=== PATIENT | female | born 1935 | race Caucasian/White ===

== ENCOUNTER 2018-11-02 13:21 | Inpatient (IN) | payer MEDICARE, OTHER ==
[~2018-11-02] VITALS: Ht 157.5 cm; Wt 61.3 kg
[2018-11-02] MEDS ORDERED: SODIUM CHLORIDE 0.9% 500 ML IV ONE (13:59)
[2018-11-02 14:37] LABS: Basophils # (auto) 0 uL; Basophils % (auto) 0.3 % (0.0-2.0); Eosinophils # (auto) 0 uL; Eosinophils % (auto) 0.4 % (0.0-7.0); Hemoglobin 12.2 g/dL (12.2-16.2); Lymphocytes # (auto) 0.9 uL; Mean Corpuscular Hgb Conc. 34.9 g/dL (32.0-36.0); Mean Corpuscular Volume 91.6 fL (80.0-100.0); Monocytes # (auto) 0.6 uL; Monocytes % (auto) 10.1 % (0.0-12.0); Neutrophils # (auto) 4.6 uL; Neutrophils % (auto) 75.2 % (37.0-80.0); Platelet Count (auto) 168 10^3/uL (140-450); Red Blood Cells 3.82 10^6/uL (4.0-5.20); White Blood Cell 6.1 10^3/uL (4.4-10.8)
[2018-11-02 14:52] LABS: Alanine Aminotransferase 26 U/L (13-56); Albumin 2.8 g/dL (3.4-5.0); Anion Gap 5 (5-15); Aspartate Aminotransferase 22 U/L (15-37); BUN/Creatinine Ratio 18.7; Blood Urea Nitrogen 20 mg/dL (7-18); Calcium 8.3 mg/dL (8.5-10.1); Carbon Dioxide 28 mmol/L (21-32); Chloride 110 mmol/L (98-107); GFR African American 63 mL/min; GFR Non-African American 52 mL/min; Glucose 127 mg/dL (74-106); Partial Thromboplastin Time 23.8 sec (23.64-32.05); Potassium 3.5 mmol/L (3.5-5.1); Sodium 143 mmol/L (136-145)
[2018-11-02 14:53] LABS: Bilirubin, Total 0.3 mg/dL (0.2-1.0); Total Protein 5.7 g/dL (6.4-8.2)
[2018-11-02 14:57] LABS: Alkaline Phosphatase 96 U/L (45-117)
[2018-11-02] MEDS ORDERED: SOD CHL 0.9%/ KCL 20MEQ 1,000 ML IV ONE (17:15)
[2018-11-02] MEDS ORDERED: ONDANSETRON HCL 4 MG/2 ML VIAL IV PRN (17:15)
[2018-11-02] MEDS ORDERED: NITROGLYCERIN 0.4 MG SL TAB SL PRN (17:15)
[2018-11-02] MEDS ORDERED: MORPHINE SULF INJ 2 MG/ML SYRINGE 1ML IV PRN ×2 (17:15)
[2018-11-02] MEDS: ACETAMINOPHEN 500 MG TAB PO PRN (18:14)
[2018-11-02 19:53] VITALS: BP 131/69
--- NOTE | 2018-11-02 19:53 | NUR ---
Telemetry admit from ER ULISSES STEPHENS admitted to Telemetry unit. Patient oriented to PETER HAYDEN RN primary RN, unit, room, bed, and unit policies regarding patient care and visiting hours. Patient now on continuous telemetry monitoring, tele box # [id number] and telemetry reading on arrival to unit is sinus rhythm at 63 beats per minute. Patient placed weighed by bedscale and encouraged to call if they need something. Bed in lowest locked position, side rails up x2, call light within reach, bed alarm on. All questions and concerns addressed, patient verbalized understanding.
--- NOTE | 2018-11-02 21:32 | NUR ---
Spoke with caregiver Selena after password provided. Updated on plan of care and all questions and concerns addressed. Will continue to monitor patient.
[2018-11-02 22:00] VITALS: BP 131/69
[2018-11-02] MEDS ORDERED: ATORVASTATIN 20 MG TAB PO SCH (22:00)
--- NOTE | 2018-11-02 22:00 | NUR ---
Hospitalist Paged No diet order note. will call order clerk hospitalist paged, awaiting call back at this time.
--- NOTE | 2018-11-02 22:20 | NUR ---
Hospitalist Returned Page call center analyst hospitalist Rogelio Serrano SOCIAL MEDIA DIRECTOR returned page at this time. New order received for Regular Pureed diet. Order read back and verified, will implement and continue to monitor.
--- NOTE | 2018-11-02 22:25 | NUR ---
Patient brought ice water and offered snack. Patient declined at this time. Will continue to monitor.
[2018-11-03] MEDS ORDERED: MULTTAB61 PO (02:18)
[2018-11-03] MEDS ORDERED: ATO40T PO (02:18)
[2018-11-03] MEDS ORDERED: SERT50TA PO (02:18)
[2018-11-03 05:00] VITALS: BP 126/77
[2018-11-03 06:03] LABS: Basophils # (auto) 0 uL; Basophils % (auto) 0.5 % (0.0-2.0); Eosinophils # (auto) 0.1 uL; Eosinophils % (auto) 2.9 % (0.0-7.0); Hematocrit 33.4 % (36.0-46.0); Hemoglobin 11.4 g/dL (12.2-16.2); Lymphocytes # (auto) 1.2 uL; Lymphocytes % (auto) 28.6 % (10.0-50.0); Mean Corpuscular Hemoglobin 30.7 pg (28.0-32.0); Mean Corpuscular Hgb Conc. 33.9 g/dL (32.0-36.0); Mean Corpuscular Volume 90.4 fL (80.0-100.0); Monocytes # (auto) 0.6 uL; Monocytes % (auto) 13.8 % (0.0-12.0); Neutrophils # (auto) 2.3 uL; Neutrophils % (auto) 54.2 % (37.0-80.0); Nucleated Red Blood Cells % 0.1 %; Platelet Count (auto) 149 10^3/uL (140-450); Red Cell Distribution Width 14.6 % (11.8-14.3); White Blood Cell 4.3 10^3/uL (4.4-10.8)
[2018-11-03 06:25] LABS: Albumin 2.6 g/dL (3.4-5.0); BUN/Creatinine Ratio 21.3; Calcium 7.9 mg/dL (8.5-10.1); Potassium 3.8 mmol/L (3.5-5.1)
[2018-11-03 06:30] LABS: Bilirubin, Total 0.4 mg/dL (0.2-1.0); Total Protein 5.5 g/dL (6.4-8.2)
--- NOTE | 2018-11-03 07:00 | NUR ---
Bathroom and Closing Note Patient assisted to bathroom and back to bed without incident. Patient now lying in bed, awake and alert. No s/s of distress. Care endorsed to dayshift RN.
--- NOTE | 2018-11-03 08:05 | NUR ---
Opening Shift Note Assumed care of patient, awake and alert. No S/S of distress/SOB or pain. Instructed on POC and to call for assist PRN, will continue to monitor for changes Q1hr and PRN.
[2018-11-03 09:00] VITALS: BP 159/99
--- NOTE | 2018-11-03 09:00 | NUR ---
BATHROOM Assisted patient to restroom with standby assist. Educated on need for urine sample. Patient was unable to provide as sample was contaminated. Education provided and patient verbalized understanding. Partial linen change and clean gown provided.
[2018-11-03] MEDS ORDERED: FAMOTIDINE 20 MG TAB PO SCH (10:00)
--- NOTE | 2018-11-03 12:29 | NUR ---
TELEPHONE ORDERS Received call from Dr Blanchard, janine MD on patient. T/O's read back and noted.
[2018-11-03 13:22] VITALS: BP 125/74
[2018-11-03 14:06] LABS: Urine WBC None Seen /hpf (0 - 5)
[2018-11-03 14:26] LABS: Urine Bacteria NONE SEEN /hpf (None Seen); Urine Blood Negative /uL (Negative); Urine Specific Gravity 1.012 (1.001-1.035)
[2018-11-03] MEDS ORDERED: SODIUM CHLORIDE 0.9% 1,000 ML IV SCH (16:15)
[2018-11-03] MEDS: ACETAMINOPHEN 500 MG TAB PO PRN (17:01)
--- NOTE | 2018-11-03 19:25 | NUR ---
Opening Shift Note Report received from day shift RN. Assumed care of patient. Patient awake and alert x3. No S/S of distress/SOB noted and denies pain at this time. Bed left in lowest position, locked, with side rails up x2. Bed alarm on for safety. Instructed on POC and to call for assist PRN, will continue to monitor for changes Q1hr and PRN.
[2018-11-03] MEDS: ATORVASTATIN 20 MG TAB PO SCH (21:33)
[2018-11-03] MEDS: FAMOTIDINE 20 MG TAB PO SCH (21:33)
[2018-11-03 22:00] VITALS: BP 127/70
[2018-11-03] MEDS: HYDROcodone-ACET 5/325MG TAB PO PRN (23:16)
[2018-11-04 07:32] LABS: Basophils # (auto) 0 uL; Eosinophils # (auto) 0.2 uL; Eosinophils % (auto) 3.9 % (0.0-7.0); Hematocrit 35.9 % (36.0-46.0); Hemoglobin 12.1 g/dL (12.2-16.2); Lymphocytes # (auto) 1.1 uL; Mean Corpuscular Hemoglobin 30.7 pg (28.0-32.0); Mean Corpuscular Hgb Conc. 33.7 g/dL (32.0-36.0); Mean Corpuscular Volume 91.1 fL (80.0-100.0); Monocytes # (auto) 0.5 uL; Monocytes % (auto) 12.2 % (0.0-12.0); Neutrophils # (auto) 2.4 uL; Neutrophils % (auto) 56.9 % (37.0-80.0); Platelet Count (auto) 156 10^3/uL (140-450); Red Blood Cells 3.95 10^6/uL (4.0-5.20); Red Cell Distribution Width 14.5 % (11.8-14.3); White Blood Cell 4.2 10^3/uL (4.4-10.8)
[2018-11-04 08:02] LABS: Potassium 3.8 mmol/L (3.5-5.1)
[2018-11-04 08:04] LABS: BUN/Creatinine Ratio 17.3
[2018-11-04 09:00] VITALS: BP 139/103
[2018-11-04] MEDS: MULTIPLE VITAMIN TAB PO SCH (10:21)
[2018-11-04] MEDS: FAMOTIDINE 20 MG TAB PO SCH ×2 (10:21→21:54)
[2018-11-04] MEDS: SERTRALINE HCL 50 MG TAB PO SCH (10:21)
[2018-11-04] MEDS: ENOXAPARIN SOD 40 MG/0.4 ML SYRINGE SC SCH (10:22)
--- NOTE | 2018-11-04 11:15 | NUR ---
PHYSICAL THERAPY Patient ambulating with PT.
[2018-11-04 12:56] VITALS: BP 131/99
--- NOTE | 2018-11-04 14:00 | NUR ---
WANDERING Patient wandering hallway, verbalizing she is going home. Educated on need to see Doctor for discharge clearance and safety. Patient verbalized understanding. Reoriented patient and returned to bed. Bed alarm on, in locked lowest position, call light in reach.
--- NOTE | 2018-11-04 16:30 | NUR ---
TELEPHONE ORDERS Received call from Dr Teresa Blanchard, updated on patient. MD asked to have consults re-called and states he will be in to see patient in approximately one hour, plans for discharge this evening. T/O received, read back, and noted.
--- NOTE | 2018-11-04 16:38 | NUR ---
CAREGIVER AT BEDSIDE Updated on patient status and possible discharge home this evening. Caregiver states she might not be able to come back to pick patient up this evening, would like d/c held or transport patient home with [facility]. Will notify MD and/or oncoming shift.
[2018-11-04 16:39] VITALS: BP 140/78
--- NOTE | 2018-11-04 16:40 | NUR ---
NEURO AND CARDIO CONSULT RE CALLED
--- NOTE | 2018-11-04 18:30 | NUR ---
DOCTOR ROUNDING Dr Blanchard rounding on patient, states patient can discharge early in morning once rn home care can grape picker, clearance of neuro and cardio.
--- NOTE | 2018-11-04 19:20 | NUR ---
Opening Shift Note Report received from day shift RN. Assumed care of patient. Patient awake laying in bed and alert x3. No S/S of distress/SOB noted and denies pain at this time. Bed left in lowest position, locked, with side rails up x2. Bed alarm on for safety. Instructed on POC and to call for assist PRN, will continue to monitor for changes Q1hr and PRN.
[2018-11-04] MEDS: ATORVASTATIN 20 MG TAB PO SCH (21:54)
[2018-11-04] MEDS: HYDROcodone-ACET 5/325MG TAB PO PRN (21:54)
[2018-11-04 23:43] VITALS: BP 149/80
[2018-11-05 05:31] VITALS: BP 129/70
[2018-11-05 06:47] LABS: Basophils # (auto) 0 uL; Basophils % (auto) 0.9 % (0.0-2.0); Eosinophils # (auto) 0.2 uL; Eosinophils % (auto) 3.8 % (0.0-7.0); Hematocrit 36.1 % (36.0-46.0); Hemoglobin 12.5 g/dL (12.2-16.2); Lymphocytes # (auto) 1.2 uL; Lymphocytes % (auto) 28.4 % (10.0-50.0); Mean Corpuscular Hemoglobin 30.9 pg (28.0-32.0); Mean Corpuscular Hgb Conc. 34.5 g/dL (32.0-36.0); Mean Corpuscular Volume 89.4 fL (80.0-100.0); Monocytes # (auto) 0.7 uL; Monocytes % (auto) 16.6 % (0.0-12.0); Neutrophils % (auto) 50.3 % (37.0-80.0); Platelet Count (auto) 160 10^3/uL (140-450); Red Blood Cells 4.04 10^6/uL (4.0-5.20); Red Cell Distribution Width 14.7 % (11.8-14.3); White Blood Cell 4.1 10^3/uL (4.4-10.8)
[2018-11-05 07:01] LABS: Potassium 3.5 mmol/L (3.5-5.1)
[2018-11-05 07:06] LABS: BUN/Creatinine Ratio 15.6; Calcium 8.3 mg/dL (8.5-10.1)
--- NOTE | 2018-11-05 07:30 | NUR ---
Opening Shift Note Assumed care of patient, resting with eyes closed, respirations even and unlabored. No S/S of distress/SOB or pain. Will continue to monitor for changes Q1hr and PRN.
[2018-11-05 09:00] VITALS: BP 104/59
--- NOTE | 2018-11-05 09:02 | NUR ---
DR LEXUS MABRY FOR DISCHARGE CLEARANCE
[2018-11-05] MEDS: ENOXAPARIN SOD 40 MG/0.4 ML SYRINGE SC SCH (10:00)
[2018-11-05] MEDS: SERTRALINE HCL 50 MG TAB PO SCH (10:49)
[2018-11-05] MEDS: FAMOTIDINE 20 MG TAB PO SCH (10:50)
[2018-11-05] MEDS: MULTIPLE VITAMIN TAB PO SCH (10:50)
[2018-11-05] MEDS: ACETAMINOPHEN 500 MG TAB PO PRN (10:53)
--- NOTE | 2018-11-05 11:02 | NUR ---
D/C Planning Per consult for home health safety evaluation and physical therapy. Contacted [facility] ph: ( [phone]) Fax:) faxed medical records. Per Dorina from [facility] pt has been accepted and service to start tomorrow 11/06/18. Informed RN Karey. Addendum: 11/05/18 at 1104 by AMELIA YATES Amended: Links added.
[2018-11-05 13:00] VITALS: BP 132/71
--- NOTE | 2018-11-05 14:00 | NUR ---
Caregiver Selena at bedside, discharge instructions given as ordered. Encourage to follow up with PMD, neuro and cardio as instructed. All questions and concerns addressed. Patient verbalized understanding. Medication reconciliation form completed and copy given to patient. Home medications held in Pharmacy returned to patient. IV removed with catheter intact, pressure dressing applied. Telemetry unit returned to ICU. Patient taken to vehicle via wheelchair with all personal belongings, accompanied by staff and family member. No distress noted at time of departure.
--- NOTE | 2018-11-05 15:51 | NUR ---
assessment Patient was discharged home prior to being assessed. Yane AGUIAR has satisfied home health order. Addendum: 11/06/18 at 1552 by Itzel DENIS Amended: Links added.
== END 2018-11-05 14:05 | disposition home health service (06) | DRG 683 ==
LOC: EDBD 13:21 → EDSEX 13:21 → ER 13:35 → TELE 13:36 → TELE-WESTW 19:50
PROVIDERS: ADMIT Nurse Practitioner Acute Care; ATTEND Internal Medicine
DX: N17.9 Acute kidney failure, unspecified (principal); D61.818 Other pancytopenia; E44.0 Moderate protein-calorie malnutrition; R55 Syncope and collapse; I10 Essential (primary) hypertension; E78.5 Hyperlipidemia, unspecified; E86.0 Dehydration; R00.1 Bradycardia, unspecified; F02.80 Dementia in other diseases classified elsewhere, unspecified severity, without behavioral disturbance, psychotic disturbance, mood disturbance, and anxiety; G30.9 Alzheimer's disease, unspecified; I11.9 Hypertensive heart disease without heart failure; M16.10 Unilateral primary osteoarthritis, unspecified hip; Z85.3 Personal history of malignant neoplasm of breast; Z88.6 Allergy status to analgesic agent; M51.37 Other intervertebral disc degeneration, lumbosacral region; M46.90 Unspecified inflammatory spondylopathy, site unspecified; Z68.24 Body mass index [BMI] 24.0-24.9, adult
CPT/HCPCS: 36415; 70450; 72192; 80048; 80053; 80061; 81001; 83735; 84443; 84484; 85025; 85610; 85730; 93005; 93306; 93886; 93971; 94761; 96360; 96361; 97116; 97530; G0378

== ENCOUNTER 2018-11-25 10:19 | Emergency (ER) | payer OTHER ==
[~2018-11-25] VITALS: Ht 157.5 cm; Wt 59.0 kg
[~2018-11-25 10:19] MED LIST: ATO40T PO; MULTTAB61 PO; SERT50TA PO
[2018-11-25 10:24] VITALS: BP 172/75
[2018-11-25] MEDS ORDERED: SODIUM CHLORIDE 0.9% 1,000 ML IV ONE (10:27)
[2018-11-25 11:06] LABS: Urine Bacteria NONE SEEN /hpf (None Seen); Urine Blood Negative /uL (Negative); Urine Specific Gravity 1.007 (1.001-1.035); Urine WBC <1 /hpf (0 - 5)
[2018-11-25 11:06] LABS: Basophils # (auto) 0 uL; Basophils % (auto) 0.7 % (0.0-2.0); Eosinophils # (auto) 0.1 uL; Eosinophils % (auto) 1.1 % (0.0-7.0); Hematocrit 39.7 % (36.0-46.0); Hemoglobin 13.3 g/dL (12.2-16.2); Lymphocytes # (auto) 1.3 uL; Lymphocytes % (auto) 29.5 % (10.0-50.0); Mean Corpuscular Hemoglobin 30.5 pg (28.0-32.0); Mean Corpuscular Hgb Conc. 33.6 g/dL (32.0-36.0); Mean Corpuscular Volume 90.8 fL (80.0-100.0); Monocytes # (auto) 0.6 uL; Monocytes % (auto) 12.1 % (0.0-12.0); Neutrophils # (auto) 2.6 uL; Neutrophils % (auto) 56.6 % (37.0-80.0); Nucleated Red Blood Cells % 0.1 %; Platelet Count (auto) 191 10^3/uL (140-450); Red Blood Cells 4.37 10^6/uL (4.0-5.20); Red Cell Distribution Width 14.5 % (11.8-14.3); White Blood Cell 4.6 10^3/uL (4.4-10.8)
[2018-11-25 11:20] LABS: Albumin 3.4 g/dL (3.4-5.0); Calcium 8.6 mg/dL (8.5-10.1); Potassium 3.7 mmol/L (3.5-5.1)
[2018-11-25 11:23] LABS: BUN/Creatinine Ratio 12.2; Bilirubin, Total 0.6 mg/dL (0.2-1.0); Total Protein 6.8 g/dL (6.4-8.2)
== END 2018-11-25 12:47 | disposition home or self-care (01) ==
LOC: ER 10:19 → EDBD 10:19 → ER 12:47
DX: E86.0 Dehydration (principal); N39.0 Urinary tract infection, site not specified; L71.9 Rosacea, unspecified; E78.5 Hyperlipidemia, unspecified; I10 Essential (primary) hypertension; Z88.8 Allergy status to other drugs, medicaments and biological substances
CPT/HCPCS: 36415; 70450; 72192; 80053; 81001; 85025; 96360; 99284; J7030

== ENCOUNTER 2018-12-04 00:04 | Emergency (ER) | payer OTHER ==
[~2018-12-04] VITALS: Ht 154.9 cm; Wt 59.0 kg
[2018-12-04] MEDS ORDERED: diphenhdrAMINE HCL 25 MG CAP PO ONE (02:00)
[2018-12-04] MEDS ORDERED: DexAMETHasone SOD PHOS 10MG/1ML VIAL INJ IM ONE (02:00)
[2018-12-04] MEDS ORDERED: FAMOTIDINE 20 MG TAB PO ONE (02:00)
[2018-12-04 08:23] VITALS: BP 109/62
== END 2018-12-04 09:19 | disposition home or self-care (01) ==
LOC: EDBD 00:04 → ER 00:06
DX: L50.0 Allergic urticaria (principal); E78.5 Hyperlipidemia, unspecified; I10 Essential (primary) hypertension; Z79.82 Long term (current) use of aspirin; Z79.899 Other long term (current) drug therapy
CPT/HCPCS: 96372; 99283; J1100

== ENCOUNTER 2021-07-16 16:21 | Inpatient (IN) | payer OTHER ==
[~2021-07-16] VITALS: Ht 152.4 cm; Wt 62.1 kg
[~2021-07-16 16:21] MED LIST changes: +MULT-1018 PO; -MULTTAB61 PO
[2021-07-16 18:05] LABS: Hemoglobin 12.9 g/dL (12.2-16.2); Mean Corpuscular Hgb Conc. 34.8 g/dL (32.0-36.0); Mean Corpuscular Volume 89.1 fL (80.0-100.0); Red Blood Cells 4.15 10^6/uL (4.0-5.20); Red Cell Distribution Width 15.5 % (11.8-14.3); White Blood Cell 3.5 10^3/uL (4.4-10.8)
[2021-07-16 18:06] LABS: Basophils % (manual) 0 (0.0-2.0); Blast Cells 0; Eosinophils % (manual) 0 (0-7); Metamyelocytes % 0; Myelocytes % 0; Promyelocytes % 0
[2021-07-16 18:19] LABS: INR 1.03 (0.9-1.15); Partial Thromboplastin Time 26.8 sec (23.6-33.0)
[2021-07-16 18:24] LABS: Albumin 2.9 g/dL (3.4-5.0); BUN/Creatinine Ratio 14.4; Calcium 8.9 mg/dL (8.5-10.1); Potassium 3.2 mmol/L (3.5-5.1)
[2021-07-16 18:27] LABS: Bilirubin, Total 0.3 mg/dL (0.2-1.0); Total Protein 6.1 g/dL (6.4-8.2)
[2021-07-16 18:39] LABS: Band Neutrophils % (manual) 2
[2021-07-16 18:40] LABS: Lymphocytes % (manual) 40 (10.0-50.0); Monocytes % (manual) 13 (0-12); Reactive Lymphocytes 3
[2021-07-16] MEDS ORDERED: cefTRIAXone 1GM/50ML D5W 50 ML IV ONE (21:00)
[2021-07-16] MEDS ORDERED: AZITHROMYCIN 500MG/ 250ML 250 ML IV ONE (21:00)
[2021-07-17] MEDS ORDERED: PANTOPRAZOLE 40 MG/10 ML VIAL INJ IV ONE (01:00)
[2021-07-17] MEDS ORDERED: SOD CHL 0.45% WITH 20MEQ KCL 1,000 ML IV ONE (01:00)
[2021-07-17] MEDS ORDERED: ONDANSETRON HCL 4 MG/2 ML VIAL IV PRN (01:00)
[2021-07-17 02:19] LABS: Hematocrit 36.7 % (36.0-46.0); Hemoglobin 12.8 g/dL (12.2-16.2)
[2021-07-17] MEDS ORDERED: HALOPERIDOL LACTATE 5 MG/ML INJ VIAL ONE (04:34)
[2021-07-17] MEDS ORDERED: HALOPERIDOL LACTATE 5 MG/ML INJ VIAL IM ONE (04:35)
[2021-07-17 05:33] LABS: Urine Bacteria NONE SEEN /hpf (None Seen); Urine Blood 3+ /uL (Negative); Urine Hyaline Cast MOD /lpf (0 - 2); Urine Mucus FEW (None Seen); Urine Specific Gravity 1.023 (1.001-1.035); Urine WBC 9 /hpf (0 - 5)
[2021-07-17 10:30] VITALS: BP 104/58
[2021-07-17] MEDS: PANTOPRAZOLE 40 MG/10 ML VIAL INJ IV SCH ×2 (11:28→22:09)
[2021-07-17 13:00] VITALS: BP 118/78
[2021-07-17 17:00] VITALS: BP 143/83
[2021-07-17 21:00] VITALS: BP 144/90
[2021-07-17] MEDS: AZITHROMYCIN 500MG/ 250ML 250 ML IV SCH (22:09)
[2021-07-17] MEDS: cefTRIAXone 1GM/50ML D5W 50 ML IV SCH (22:09)
[2021-07-18 05:44] LABS: Albumin 2.7 g/dL (3.4-5.0); BUN/Creatinine Ratio 13.1; Calcium 7.8 mg/dL (8.5-10.1); Potassium 3.3 mmol/L (3.5-5.1)
[2021-07-18 05:46] LABS: Bilirubin, Total 0.4 mg/dL (0.2-1.0); Total Protein 5.5 g/dL (6.4-8.2)
[2021-07-18 05:47] VITALS: BP 133/79
[2021-07-18 06:03] LABS: Basophils # (auto) 0 10 ^3/uL (0-0.2); Basophils % (auto) 0.6 % (0.0-2.0); Eosinophils # (auto) 0 10 ^3/uL (0-0.8); Eosinophils % (auto) 0.6 % (0.0-7.0); Hematocrit 35.5 % (36.0-46.0); Hemoglobin 12.6 g/dL (12.2-16.2); Lymphocytes # (auto) 1.7 10 ^3/uL (0.4-5.4); Lymphocytes % (auto) 46.3 % (10.0-50.0); Mean Corpuscular Hemoglobin 31.1 pg (28.0-32.0); Mean Corpuscular Hgb Conc. 35.5 g/dL (32.0-36.0); Mean Corpuscular Volume 87.8 fL (80.0-100.0); Monocytes # (auto) 0.5 10 ^3/uL (0-1.3); Monocytes % (auto) 15.3 % (0.0-12.0); Neutrophils # (auto) 1.3 10 ^3/uL (1.6-8.6); Neutrophils % (auto) 37.2 % (37.0-80.0); Nucleated Red Blood Cells % 0.2 %; Red Blood Cells 4.04 10^6/uL (4.0-5.20); Red Cell Distribution Width 14.9 % (11.8-14.3); White Blood Cell 3.6 10^3/uL (4.4-10.8)
[2021-07-18 08:43] VITALS: BP 128/71
[2021-07-18] MEDS: PANTOPRAZOLE 40 MG/10 ML VIAL INJ IV SCH ×2 (10:40→21:35)
[2021-07-18 13:00] VITALS: BP_SYST 124; BP_SYST 143; BP_DIAS 70; BP_DIAS 82
[2021-07-18] MEDS: cefTRIAXone 1GM/50ML D5W 50 ML IV SCH (21:35)
[2021-07-18 22:00] VITALS: BP 135/79
[2021-07-18] MEDS: AZITHROMYCIN 500MG/ 250ML 250 ML IV SCH (22:44)
[2021-07-19 05:00] VITALS: BP 148/80
[2021-07-19 06:17] LABS: Calcium 8.3 mg/dL (8.5-10.1); Potassium 3.3 mmol/L (3.5-5.1)
[2021-07-19 06:23] LABS: BUN/Creatinine Ratio 11.5
[2021-07-19 09:00] VITALS: BP 141/77
[2021-07-19 12:43] VITALS: BP 134/82
[2021-07-19] MEDS ORDERED: POTASSIUM CHL 20 Meq TABLET PO ONE (15:45)
[2021-07-19] MEDS: MORPHINE SULFATE INJ 2 MG/ml SYRG IV PRN ×2 (16:27→22:00)
[2021-07-19 16:50] VITALS: BP 143/90
[2021-07-19 22:00] VITALS: BP 152/94
[2021-07-19] MEDS: cefTRIAXone 1GM/50ML D5W 50 ML IV SCH (22:00)
[2021-07-19] MEDS: AZITHROMYCIN 500MG/ 250ML 250 ML IV SCH (23:35)
[2021-07-20 05:00] VITALS: BP 139/76
[2021-07-20 12:35] LABS: Basophils # (auto) 0 10 ^3/uL (0-0.2); Basophils % (auto) 0.6 % (0.0-2.0); Eosinophils # (auto) 0.1 10 ^3/uL (0-0.8); Eosinophils % (auto) 1.8 % (0.0-7.0); Hemoglobin 13.2 g/dL (12.2-16.2); Lymphocytes # (auto) 1.4 10 ^3/uL (0.4-5.4); Lymphocytes % (auto) 27.5 % (10.0-50.0); Mean Corpuscular Hemoglobin 30.7 pg (28.0-32.0); Mean Corpuscular Hgb Conc. 34.7 g/dL (32.0-36.0); Mean Corpuscular Volume 88.4 fL (80.0-100.0); Monocytes # (auto) 0.6 10 ^3/uL (0-1.3); Monocytes % (auto) 10.6 % (0.0-12.0); Neutrophils # (auto) 3.1 10 ^3/uL (1.6-8.6); Neutrophils % (auto) 59.5 % (37.0-80.0); Nucleated Red Blood Cells % 0.2 %; White Blood Cell 5.3 10^3/uL (4.4-10.8)
[2021-07-20 13:00] VITALS: BP 145/75
[2021-07-20] MEDS ORDERED: PANT40TA2 PO (13:34)
[2021-07-20] MEDS ORDERED: POTASSIUM CHL 20 Meq TABLET PO ONE (13:45)
[2021-07-20] MEDS ORDERED: DOXY-346 PO (14:32)
[2021-07-20 17:00] VITALS: BP 155/90
[2021-07-20] MEDS: cefTRIAXone 1GM/50ML D5W 50 ML IV SCH (21:58)
[2021-07-20] MEDS: MORPHINE SULFATE INJ 2 MG/ml SYRG IV PRN (21:58)
[2021-07-20 22:00] VITALS: BP 164/94
[2021-07-21 05:00] VITALS: BP 141/99
[2021-07-21 08:00] VITALS: BP 137/94
[2021-07-21] MEDS ORDERED: LACTULOSE 20Gm/30ML SOLN PO ONE (10:45)
[2021-07-21 12:00] VITALS: BP 130/76
[2021-07-21 13:39] LABS: BUN/Creatinine Ratio 11.5; Calcium 8.9 mg/dL (8.5-10.1); Potassium 3.5 mmol/L (3.5-5.1)
[2021-07-21] MEDS ORDERED: GASTROGRAFIN 120 ML SOL ONE (14:51)
[2021-07-21 16:00] VITALS: BP 140/86
[2021-07-21] MEDS: HYDROcodone-ACET 10/325MG TAB PO PRN ×2 (16:45→23:22)
[2021-07-21 22:00] VITALS: BP 135/85
[2021-07-21] MEDS ORDERED: LACTULOSE 20Gm/30ML SOLN PO SCH (22:00)
[2021-07-21] MEDS: LACTULOSE 20Gm/30ML SOLN PO SCH (23:21)
[2021-07-21] MEDS: cefTRIAXone 1GM/50ML D5W 50 ML IV SCH (23:21)
[2021-07-22] MEDS: AZITHROMYCIN 500MG/ 250ML 250 ML IV SCH ×2 (00:20→00:22)
[2021-07-22 05:00] VITALS: BP 145/81
[2021-07-22 09:00] VITALS: BP 126/62
[2021-07-22] MEDS: LACTULOSE 20Gm/30ML SOLN PO SCH (09:40)
[2021-07-22 13:00] VITALS: BP 151/87
[2021-07-22] MEDS: MORPHINE SULFATE INJ 2 MG/ml SYRG IV PRN (14:02)
[2021-07-22 14:32] VITALS: BP 140/72
== END 2021-07-22 19:00 | disposition home health service (06) | DRG 194 ==
LOC: ER 16:21 → OVERFLOW 07-17 00:58 → CENTRAL 07-17 09:02
PROVIDERS: ADMIT Nurse Practitioner; ATTEND Internal Medicine
DX: J18.9 Pneumonia, unspecified organism (principal); J98.11 Atelectasis; N17.9 Acute kidney failure, unspecified; E44.0 Moderate protein-calorie malnutrition; D70.9 Neutropenia, unspecified; E78.5 Hyperlipidemia, unspecified; E87.6 Hypokalemia; F02.80 Dementia in other diseases classified elsewhere, unspecified severity, without behavioral disturbance, psychotic disturbance, mood disturbance, and anxiety; Z20.822 Contact with and (suspected) exposure to COVID-19; G30.9 Alzheimer's disease, unspecified; I12.9 Hypertensive chronic kidney disease with stage 1 through stage 4 chronic kidney disease, or unspecified chronic kidney disease; M85.80 Other specified disorders of bone density and structure, unspecified site; N18.9 Chronic kidney disease, unspecified; Z88.8 Allergy status to other drugs, medicaments and biological substances; K59.00 Constipation, unspecified; Z90.49 Acquired absence of other specified parts of digestive tract; Z68.26 Body mass index [BMI] 26.0-26.9, adult
CPT/HCPCS: 36415; 71045; 74018; 74176; 74250; 80048; 80053; 81001; 83605; 84484; 85007; 85014; 85018; 85025; 85027; 85610; 85730; 86850; 86900; 86901; 87040; 96365; 96367; 96368; 96372; 96375; C9113; G0378; J0696

== ENCOUNTER 2022-06-06 17:43 | Inpatient (IN) | payer OTHER ==
[~2022-06-06] VITALS: Ht 157.5 cm; Wt 57.3 kg
[~2022-06-06 17:43] MED LIST changes: +DOXY-346 PO; +PANT40TA2 PO
[2022-06-06 19:15] LABS: Basophils # (auto) 0 10 ^3/uL (0-0.2); Basophils % (auto) 0.5 % (0.0-2.0); Eosinophils # (auto) 0.1 10 ^3/uL (0-0.8); Eosinophils % (auto) 0.9 % (0.0-7.0); Hematocrit 40.3 % (36.0-46.0); Hemoglobin 14.1 g/dL (12.2-16.2); Lymphocytes # (auto) 1.9 10 ^3/uL (0.4-5.4); Lymphocytes % (auto) 31.7 % (10.0-50.0); Mean Corpuscular Hemoglobin 30.7 pg (28.0-32.0); Mean Corpuscular Hgb Conc. 34.9 g/dL (32.0-36.0); Mean Corpuscular Volume 88.1 fL (80.0-100.0); Monocytes # (auto) 0.6 10 ^3/uL (0-1.3); Monocytes % (auto) 10.5 % (0.0-12.0); Neutrophils # (auto) 3.4 10 ^3/uL (1.6-8.6); Neutrophils % (auto) 56.4 % (37.0-80.0); Nucleated Red Blood Cells % 0.1 %; Red Blood Cells 4.57 10^6/uL (4.0-5.20); Red Cell Distribution Width 14.5 % (11.8-14.3)
[2022-06-06 19:27] LABS: INR 1.01 (0.9-1.15); Partial Thromboplastin Time 26.2 sec (24.6-33.4)
[2022-06-06 19:34] LABS: Albumin 3.2 g/dL (3.4-5.0); BUN/Creatinine Ratio 15.3 (10.0-20.0); Calcium 8.9 mg/dL (8.5-10.1); Magnesium 2.2 mg/dL (1.6-2.6); Potassium 4.3 mmol/L (3.5-5.1)
[2022-06-06 19:37] LABS: Bilirubin, Total 0.4 mg/dL (0.2-1.0)
[2022-06-07] MEDS ORDERED: NITROGLYCERIN 0.4 MG SL TAB SL PRN (03:45)
[2022-06-07] MEDS ORDERED: MORPHINE SULFATE INJ 2 MG/ml SYRG IV PRN (03:45)
[2022-06-07] MEDS ORDERED: ONDANSETRON HCL 4 MG/2 ML VIAL IV PRN (03:45)
[2022-06-07] MEDS ORDERED: ACETAMINOPHEN 325 MG TAB PO PRN (03:45)
[2022-06-07] MEDS ORDERED: HALOPERIDOL LACTATE 5 MG/ML INJ VIAL IM ONE (04:45)
[2022-06-07 06:15] LABS: Urine Bacteria FEW /hpf (None Seen); Urine Blood Negative /uL (Negative); Urine Hyaline Cast FEW /lpf (0 - 2); Urine Specific Gravity 1.011 (1.001-1.035); Urine WBC 2 /hpf (0 - 5)
[2022-06-07] MEDS: ENOXAPARIN SOD 40 MG/0.4 ML SYRINGE SC SCH (08:44)
[2022-06-07] MEDS: cefTRIAXone 1GM/50ML D5W 50 ML IV SCH (09:11)
[2022-06-07] MEDS: SERTRALINE HCL 50 MG TAB PO SCH (09:12)
[2022-06-07] MEDS: PANTOPRAZOLE 40 MG TAB PO SCH (09:12)
[2022-06-07] MEDS: MEMANTINE HCL 5 MG TAB PO SCH (09:12)
[2022-06-07] MEDS: ATORVASTATIN 20 MG TAB PO SCH (23:50)
[2022-06-08 05:21] LABS: BUN/Creatinine Ratio 18.4 (10.0-20.0); Potassium 3.5 mmol/L (3.5-5.1)
[2022-06-08 05:22] LABS: Calcium 8.4 mg/dL (8.5-10.1)
[2022-06-08] MEDS: SERTRALINE HCL 50 MG TAB PO SCH (09:39)
[2022-06-08] MEDS: ENOXAPARIN SOD 40 MG/0.4 ML SYRINGE SC SCH (09:40)
[2022-06-08] MEDS: MEMANTINE HCL 5 MG TAB PO SCH (09:40)
[2022-06-08] MEDS: cefTRIAXone 1GM/50ML D5W 50 ML IV SCH (09:40)
[2022-06-08] MEDS: PANTOPRAZOLE 40 MG TAB PO SCH (09:40)
[2022-06-08] MEDS ORDERED: METO-158 PO (10:57)
[2022-06-08 12:30] VITALS: BP 140/85
[2022-06-08 17:00] VITALS: BP 147/78
[2022-06-08 22:00] VITALS: BP 130/77
[2022-06-08] MEDS: ATORVASTATIN 20 MG TAB PO SCH (22:17)
[2022-06-09 05:00] VITALS: BP 142/87
[2022-06-09 09:00] VITALS: BP 130/79
[2022-06-09] MEDS: SERTRALINE HCL 50 MG TAB PO SCH (09:30)
[2022-06-09] MEDS: MEMANTINE HCL 5 MG TAB PO SCH (09:30)
[2022-06-09] MEDS: ENOXAPARIN SOD 40 MG/0.4 ML SYRINGE SC SCH (09:30)
[2022-06-09] MEDS: cefTRIAXone 1GM/50ML D5W 50 ML IV SCH (09:30)
[2022-06-09] MEDS: PANTOPRAZOLE 40 MG TAB PO SCH (09:30)
[2022-06-09 13:00] VITALS: BP 121/72
[2022-06-09 13:11] VITALS: BP 135/56
[2022-06-09 17:00] VITALS: BP 127/76
== END 2022-06-09 17:25 | disposition home health service (06) | DRG 948 ==
LOC: EDBD 17:43 → ER 17:43 → TELE 06-07 03:48 → TELE-WESTW 06-08 07:54
PROVIDERS: ADMIT Nurse Practitioner; ATTEND Internal Medicine Geriatric Medicine
DX: R41.82 Altered mental status, unspecified (principal); R53.1 Weakness; E78.5 Hyperlipidemia, unspecified; F02.80 Dementia in other diseases classified elsewhere, unspecified severity, without behavioral disturbance, psychotic disturbance, mood disturbance, and anxiety; R00.1 Bradycardia, unspecified; G30.9 Alzheimer's disease, unspecified; Z20.822 Contact with and (suspected) exposure to COVID-19; I10 Essential (primary) hypertension; Z88.6 Allergy status to analgesic agent; Z91.048 Other nonmedicinal substance allergy status
CPT/HCPCS: 36415; 70450; 71045; 80048; 80053; 81001; 82962; 83735; 83880; 84484; 85025; 85610; 85730; 87086; 87426; 93005; 97163; 99291; G0378; J0696

== ENCOUNTER 2024-03-26 21:24 | Inpatient (IN) | payer OTHER ==
[~2024-03-26] VITALS: Ht 167.6 cm; Wt 54.9 kg
[~2024-03-26 21:24] MED LIST changes: -ATO40T PO; +ATOR-507 PO; +CALC-179 OR; -DOXY-346 PO; +MEMA1TAB5 PO; +METO-158 PO
--- NOTE | 2024-03-26 22:27 | ED.PDOC ---
Altered Mental Status HPI Comments 88-year-old female brought in by EMS due to altered level of consciousness. Per EMS, patient was picked up at home, has history of hypertension and dementia, at about 7:00 p.m. last night was noted by family members to be generally weak, lethargic, dysarthric, and more confused than normal. Family reports patient's baseline is oriented x1 or 2 at times. She is not normally dysarthric. On arrival to the ER, the patient is alert, is oriented x1, and is able to answer yes/no questions. Blood sugar 145 on scene, with a blood pressure 103/67 mmHg. Chief Complaint: ALOC Time Seen by MD: 22:26 Primary Care Provider: UNKNOWN Reviewed Notes: Certified Pharmacy Tech Notes Allergies: Coded Allergies: Aspirin (Verified Allergy, Unknown, 01/05/15) Uncoded Allergies: TAPE (Allergy, Unknown, 01/05/15) Home Meds Active Scripts Pantoprazole Sodium Sesquihydr (Protonix) 40 Mg Tab, 40 MG PO DAILY for 30 Days, #30 TAB Prov:CLIFFORD OATES VIDEO NEWS EDITOR 07/20/21 Reported Medications Calcium W/ Magnesium (Calcium & Magnesium) Tab, 1 OR, TAB 03/09/23 Memantine Hydrochloride (Memantine HCl) 10 Mg Tab, 10 MG PO, TAB 03/09/23 Metoprolol Tartrate (Metoprolol Tartrate) 50 Mg Tab, 50 MG PO DAILY for 30 Days, MG 06/08/22 Multiple Vitamin (Multivitamins) Tab, 1 TAB PO DAILY, TAB 11/03/18 Atorvastatin Calcium (Lipitor) 40 Mg Tab, 1 TAB PO DAILY, TAB 11/03/18 Sertraline Hcl (Zoloft) 50 Mg Tab, 40 MG PO BID, TAB 11/03/18 Information Source: Emergency Med Personnel Mode of Arrival: EMS Severity: Unable to Care for Self Timing: Hours Duration: Since onset Prehospital treatment: Accucheck, Oxygen Quality: Decreased Alertness, Change in Behavior, Confusion History of: Dementia Associated Signs and Symptoms: Slurred Speech Past Medical History PAST MEDICAL HISTORY: Alzheimer, Cancer, Dementia, Depression, High Lipids, HTN Surgical History: Pt Confused COMMUNICATION CONSULTANT History: Pt Confused Family History Family History: Pt Confused Social History Smoker: Pt Confused Alcohol: Pt Confused Drugs: Pt Confused Lives In: Home Unable to Obtain due to: Altered Mental Status, Dementia Physical Exam General Appearance: No Apparent Distress HEENT: Other (Pupils symmetric, no facial asymmetry, extraocular movements intact) Neck: Full Range of Motion, Normal Inspection Respiratory: Lungs Clear, No Accessory Muscle Use, No Respiratory Distress, Normal Breath Sounds Cardiovascular: No Edema, No JVD, Regular Rate/Rhythm Breast Exam: Deferred Gastrointestinal: Non Tender, Soft Genitalia: Deferred Pelvic: Deferred Rectal: Deferred Extremities: Normal inspection, Normal range of motion, Non-tender, Pedal edema Neurologic: Alert (Oriented x1), Normal Affect, Normal Mood, Other (No dysarthria noted. Moves all extremities. Sensation intact all extremities. No gross focal deficit.) Cerebellar Function: NOT DONE Reflexes: NOT DONE Skin: Dry, Normal Color, Warm Lymphatic: NOT DONE Was a procedure done? Was a procedure done?: No Differential Diagnosis (ALOC) Differential Diagnosis: Hypoglycemia, Encephalopathy, Sepsis, Hypoxemia, CVA, Mass Lesion, ETOH Intoxication, Renal Failure, Other (Dementia, UTI, TIA, arrhythmia, SD, among others) X-Ray, Labs, Meds, VS Vital Signs Date Time Temp Pulse Resp B/P (MAP) Pulse Ox O2 Delivery O2 Flow Rate FiO2 03/26/24 21:31 97.8 60 12 140/84 (102) 98 Lab Test 03/26/24 23:50 03/26/24 22:28 Range/Units Troponin I High Sensitivity 3 L < 3 L </=34 ng/L White Blood Count 6.3 4.4-10.8 10^3/uL Red Blood Count 4.26 4.0-5.20 10^6/uL Hemoglobin 13.6 12.2-16.2 g/dL Hematocrit 40.2 36.0-46.0 % Mean Corpuscular Volume 94.3 80.0-100.0 fL Mean Corpuscular Hemoglobin 32.0 28.0-32.0 pg Mean Corpuscular Hemoglobin Concent 34.0 32.0-36.0 g/dL Red Cell Distribution Width 14.5 H 11.8-14.3 % Platelet Count 185 140-450 10^3/uL Mean Platelet Volume 8.6 6.9-10.8 fL Neutrophils (%) (Auto) 55.1 37.0-80.0 % Lymphocytes (%) (Auto) 31.4 10.0-50.0 % Monocytes (%) (Auto) 11.4 0.0-12.0 % Eosinophils (%) (Auto) 1.3 0.0-7.0 % Basophils (%) (Auto) 0.8 0.0-2.0 % Neutrophils # (Auto) 3.5 1.6-8.6 10 ^3/uL Lymphocytes # (Auto) 2.0 0.4-5.4 10 ^3/uL Monocytes # (Auto) 0.7 0-1.3 10 ^3/uL Eosinophils # (Auto) 0.1 0-0.8 10 ^3/uL Basophils # (Auto) 0 0-0.2 10 ^3/uL Nucleated Red Blood Cells 0.0 % Sodium Level 142 136-145 mmol/L Potassium Level 4.9 3.5-5.1 mmol/L Chloride Level 107 98-107 mmol/L Carbon Dioxide Level 31 20-31 mmol/L Anion Gap 4 L 5-15 Blood Urea Nitrogen 22 9-23 mg/dL Creatinine 0.92 0.550-1.02 mg/dL Glomerular Filtration Rate Calc 61 >90 mL/min BUN/Creatinine Ratio 23.9 H 10.0-20.0 Serum Glucose 107 H 74-106 mg/dL Lactic Acid Level 1.0 0.4-2.0 mmol/L Calcium Level 10.0 8.7-10.4 mg/dL Total Bilirubin 0.4 0.2-1.0 mg/dL Aspartate Amino Transferase (AST) 19 13-40 U/L Alanine Aminotransferase (ALT) < 9 7-40 U/L Alkaline Phosphatase 141 H 46-116 U/L Ammonia 17 11-32 umol/L B-Type Natriuretic Peptide 127.13 0-100 pg/mL Total Protein 6.6 5.7-8.2 g/dL Albumin 4.2 3.2-4.8 g/dL Plasma/Serum Blood Alcohol 4.0 <10 mg/dL EXAM: CT HEAD WITHOUT CONTRAST INDICATION: aloc TECHNIQUE: CT of the head without intravenous contrast. Radiation Dose Information: CT Dose: CTDI volume is 51.17 mGy. Dose-length product is 1008.64 mGy*cm The dose indicators for CT are the volume Computed Tomography (CT) Dose Index (CTDIvol) and the Dose Length Product (DLP), and are measured in units of mGy and mGy-cm, respectively. These indicators are not patient dose, but values generated from the CT scanner acquisition factors. The report includes radiation exposure data for exposures received during this examination. COMPARISON: CT CERVICAL WITHOUT CONTRAST on DOS: 03/07/23, CT HEAD WITHOUT CONTRAST on DOS: 03/07/23, CT HEAD WITHOUT CONTRAST on DOS: 06/06/22 FINDINGS: There is no evidence of acute intracranial hemorrhage, extra-axial collection, mass effect, midline shift, herniation or hydrocephalus. The ventricles, sulci and cisterns are age appropriate. The belle-white differentiation is intact. Patchy periventricular and subcortical white matter hypoattenuation is nonspecific but may be related to small vessel ischemic disease. The visualized paranasal sinuses and mastoid air cells are clear. The surrounding soft tissues and osseous structures are unremarkable. IMPRESSION: No acute intracranial hemorrhage. No territorial ischemia CHEST RADIOGRAPH Indication: aloc Technique: Single frontal view of the chest was obtained Comparison: XY CHEST PORTABLE on DOS: 03/11/23, XY CHEST PORTABLE on DOS: 03/07/23, XY CHEST PORTABLE on DOS: 06/06/22 Findings/ IMPRESSION: No active cardiopulmonary disease or significant interval change. Elevated left hemidiaphragm. X-Ray, Labs, Meds, VS Comment 88-year-old female with a history of dementia, hypertension and hyperlipidemia presenting with altered mental status, weakness, lethargy and transient dysarthria Vitals unremarkable Exam unremarkable . Patient is oriented x1. Able to answer yes or no questions. Does not appear dysarthric. No gross focal deficit on exam. Rhythm strip independently interpreted by me: Sinus rhythm, rate 60, no ectopy. Head CT IMPRESSION: No acute intracranial hemorrhage. No territorial ischemia Chest x-ray IMPRESSION: No active cardiopulmonary disease or significant interval change. Elevated left hemidiaphragm. CBC, CMP, BNP, troponin, ammonia, alcohol level unremarkable for any abnormality of acute significance UA pending Patient treated with the following in the ED: Plavix 75 mg p.o. (patient is allergic to aspirin) On re-evaluation, patient appears to be at her neurologic baseline according to what we were advised by EMS. Plan is to admit the patient for brain MRI and Neurology evaluation Time of 1ST Reevaluation: 22:23 Reevaluation 1ST: Unchanged Patient Education/Counseling: Diagnosis, Treatment, Other (Dementia) Family Education/Counseling: No Family Present Departure 1 Departure Time of Disposition: 01:40 Impression: Primary Impression: Altered mental status Qualified Codes: R41.82 - Altered mental status, unspecified Disposition: 09 ADMITTED INPATIENT Admit to: Tele Condition: Guarded Critical Care Note Critical Care Time?: No Stability Stability form required: No Heart Score Heart Score: Heart Score Response (Comments) Value History N/A 0 EKG N/A 0 Age N/A 0 Risk Factors N/A 0 Troponin N/A 0 Total 0 I personally scribed for ARIK HSU MD ([facility] on 03/26/24 at 22:27. Electronically submitted by Gerard Castro ([facility] I personally scribed for ARIK HSU MD ([facility]) on 03/26/24 at 23:56. Electronically submitted by Gerard Castro ([facility]). ARIK HSU MD Mar 26, 2024 22:27
[2024-03-26 22:40] LABS: Basophils # (auto) 0 10 ^3/uL (0-0.2); Basophils % (auto) 0.8 % (0.0-2.0); Eosinophils # (auto) 0.1 10 ^3/uL (0-0.8); Eosinophils % (auto) 1.3 % (0.0-7.0); Hematocrit 40.2 % (36.0-46.0); Hemoglobin 13.6 g/dL (12.2-16.2); Lymphocytes % (auto) 31.4 % (10.0-50.0); Mean Corpuscular Volume 94.3 fL (80.0-100.0); Monocytes # (auto) 0.7 10 ^3/uL (0-1.3); Monocytes % (auto) 11.4 % (0.0-12.0); Neutrophils # (auto) 3.5 10 ^3/uL (1.6-8.6); Neutrophils % (auto) 55.1 % (37.0-80.0); Platelet Count (auto) 185 10^3/uL (140-450); Red Blood Cells 4.26 10^6/uL (4.0-5.20); Red Cell Distribution Width 14.5 % (11.8-14.3); White Blood Cell 6.3 10^3/uL (4.4-10.8)
--- NOTE | 2024-03-26 23:01 | DVH ---
CHEST RADIOGRAPH Indication: aloc Technique: Single frontal view of the chest was obtained Comparison: XY CHEST PORTABLE on DOS: 03/11/23, XY CHEST PORTABLE on DOS: 03/07/23, XY CHEST PORTABLE on DOS: 06/06/22 Findings/ IMPRESSION: No active cardiopulmonary disease or significant interval change. Elevated left hemidiaphragm.
--- NOTE | 2024-03-26 23:11 | DVH ---
EXAM: CT HEAD WITHOUT CONTRAST INDICATION: aloc TECHNIQUE: CT of the head without intravenous contrast. Radiation Dose Information: CT Dose: CTDI volume is 51.17 mGy. Dose-length product is 1008.64 mGy*cm The dose indicators for CT are the volume Computed Tomography (CT) Dose Index (CTDIvol) and the Dose Length Product (DLP), and are measured in units of mGy and mGy-cm, respectively. These indicators are not patient dose, but values generated from the CT scanner acquisition factors. The report includes radiation exposure data for exposures received during this examination. COMPARISON: CT CERVICAL WITHOUT CONTRAST on DOS: 03/07/23, CT HEAD WITHOUT CONTRAST on DOS: 03/07/23, CT HEAD WITHOUT CONTRAST on DOS: 06/06/22 FINDINGS: There is no evidence of acute intracranial hemorrhage, extra-axial collection, mass effect, midline s hift, herniation or hydrocephalus. The ventricles, sulci and cisterns are age appropriate. The belle-white differentiation is intact. Patchy periventricular and subcortical white matter hypoattenuation is nonspecific but may be related to small vessel ischemic disease. The visualized paranasal sinuses and mastoid air cells are clear. The surrounding soft tissues and osseous structures are unremarkable. IMPRESSION: No acute intracranial hemorrhage. No territorial ischemia HS:Y
[2024-03-26 23:13] LABS: Albumin 4.2 g/dL (3.2-4.8); Anion Gap 4 (5-15); Aspartate Aminotransferase 19 U/L (13-40); BUN/Creatinine Ratio 23.9 (10.0-20.0); Blood Urea Nitrogen 22 mg/dL (9-23); Chloride 107 mmol/L (98-107); Potassium 4.9 mmol/L (3.5-5.1); Sodium 142 mmol/L (136-145)
[2024-03-26 23:14] LABS: Bilirubin, Total 0.4 mg/dL (0.2-1.0); Total Protein 6.6 g/dL (5.7-8.2)
[2024-03-26 23:18] LABS: Alanine Aminotransferase < 9 U/L (7-40); Alkaline Phosphatase 141 U/L (46-116); Carbon Dioxide 31 mmol/L (20-31); Glucose 107 mg/dL (74-106)
[2024-03-27] MEDS: CLOPIDOGREL BISULFATE 75 MG TAB PO ONE (01:45)
[2024-03-27 04:54] VITALS: PULSE 61; O2SAT 98
[2024-03-27 08:46] LABS: Benzodiazephine Screen, Urine Neg (NEGATIVE)
[2024-03-27 08:47] LABS: Barbiturate Scree,Urine Neg (NEGATIVE); Opiate Scree,Urine Neg (NEGATIVE)
[2024-03-27 08:48] LABS: Amphetamine Screen, Urine Neg (NEGATIVE); Cannabinoid Screen, Urine Neg (NEGATIVE); Cocaine Screen, Urine Neg (NEGATIVE); Phencyclidine Screen, Urine Neg (NEGATIVE)
--- NOTE | 2024-03-27 09:40 | DVHHP2 ---
History of Present Illness Reason for Visit: AL History of Present Illness Yohana John is an 88-year-old female with past medical history of hypertension, hyperlipidemia, Alzheimer, dementia, breast cancer, panic disorder, anxiety, depression, and hysterectomy presents to the ED for increased confusion and altered level of consciousness x1 day. Upon examination patient is A&O x4 to person, place, time, and situation. Shortly afterwards patient st ates why she does not know she is here. Patient able to tell me that she is in the hospital but not sure what hospital. Patient denies falling or recent injury. Patient denies chest pain, shortness of breath, fever, chills, nausea, vomiting, diarrhea, and abdominal pain. Cardiovascular: HTN, hyperipidemia Psych: Anxiety, Depression, Panic Past Medical History Alzheimer Breast cancer Past Surgical History: Hysterectomy Family History: None Smoke: No ALCOHOL: none Drugs: None Lives: with Family Domestic Violence: Neg Review of Systems Constitutional: No: Fever, Chills, Sweats, Weakness, Malaise, Other Eyes: No: Pain, Vision change, Conjunctivae inflammation, Eyelid inflammation, Other, Redness ENT: No: Ear pain, Ear discharge, Nose pain, Nose discharge, Nose congestion, Mouth pain, Mouth swelling, Throat pain, Throat swelling, Other Respiratory: No: Cough, Dry, Shortness of breath, SOB with excertion, Wheezing, Hemoptysis, Pleuritic Pain, Sputum, Wheezing, Other Cardiovascular: No: Chest Pain, Palpitations, Orthopnea, Paroxysmal Noc. Dyspnea, Edema, Lt Headedness, Other Gastrointestinal: No: Nausea, Vomiting, Abdominal Pain, Diarrhea, Constipation, Melena, Hematochezia, Other Genitourinary: No Dysuria, No Frequency, No Incontinence, No Hematuria, No Retention, No Other Musculoskeletal: No: other, neck pain, shoulder pain, arm pain, back pain, hand pain, leg pain, foot pain Skin: No: Rash, Lesions, Jaundice, Bruising, Other Neurological: Confusion, Other (Patient alert and oriented x4 upon examination then responds she does not know why she is here); No: Weakness, Numbness, Incoordination, Change in speech, Seizures Allergies: Coded Allergies: Aspirin (Verified Allergy, Unknown, 01/05/15) Uncoded Allergies: TAPE (Allergy, Unknown, 01/05/15) Medications Current Medications Medications Dose Ordered Sig/[place] Route Start Time Stop Time Status Last Admin Dose Admin Metoprolol Tartrate 50 mg DAILY PO 03/27/24 10:00 Future Hold Multivitamins 1 tab DAILY PO 03/27/24 10:00 Pantoprazole Sodium 40 mg DAILY PO 03/27/24 10:00 Atorvastatin Calcium 40 mg HS PO 03/27/24 22:00 Future Hold Exam Vital Signs Vital Signs Date Time Temp Pulse Resp B/P (MAP) Pulse Ox O2 Delivery O2 Flow Rate FiO2 03/27/24 05:00 53 03/27/24 04:54 98 Room Air* 0 21 03/27/24 04:52 98.4 27 160/76 (104) 98.4 General Appearance: Alert, Oriented X3, Cooperative, No acute distress HEENT: Atraumatic, PERRLA, EOMI, Mucous membr. moist/pink Respiratory: Clear to auscultation, Normal air movement Cardiovascular: Normal S1, Normal S2, No murmurs Abdominal: Normal bowel sounds, Soft, No tenderness, No hepatospenomegaly, No masses Extremities: No clubbing, No cyanosis, No edema, Normal pulses, No tenderness/swelling Skin: No rashes, No breakdown, No significant lesion Neuro: Normal speech, Strength at 5/5 X4 ext, Normal tone, Sensation intact Psych/Mental Status: Mental status NL, Mood NL Labs/Xrays Labs Test 03/27/24 08:03 03/26/24 23:50 03/26/24 22:28 Range/Units Urine Opiates Screen Neg NEGATIVE Urine Fentanyl Screen Neg NEGATIVE Urine Barbiturates Screen Neg NEGATIVE Urine Phencyclidine Screen Neg NEGATIVE Urine Amphetamines Screen Neg NEGATIVE Urine Benzodiazepines Screen Neg NEGATIVE Urine Cocaine Screen Neg NEGATIVE Urine Cannabinoids Screen Neg NEGATIVE Troponin I High Sensitivity 3 L </=34 ng/L White Blood Count 6.3 4.4-10.8 10^3/uL Red Blood Count 4.26 4.0-5.20 10^6/uL Hemoglobin 13.6 12.2-16.2 g/dL Hematocrit 40.2 36.0-46.0 % Mean Corpuscular Volume 94.3 80.0-100.0 fL Mean Corpuscular Hemoglobin 32.0 28.0-32.0 pg Mean Corpuscular Hemoglobin Concent 34.0 32.0-36.0 g/dL Red Cell Distribution Width 14.5 H 11.8-14.3 % Platelet Count 185 140-450 10^3/uL Mean Platelet Volume 8.6 6.9-10.8 fL Neutrophils (%) (Auto) 55.1 37.0-80.0 % Lymphocytes (%) (Auto) 31.4 10.0-50.0 % Monocytes (%) (Auto) 11.4 0.0-12.0 % Eosinophils (%) (Auto) 1.3 0.0-7.0 % Basophils (%) (Auto) 0.8 0.0-2.0 % Neutrophils # (Auto) 3.5 1.6-8.6 10 ^3/uL Lymphocytes # (Auto) 2.0 0.4-5.4 10 ^3/uL Monocytes # (Auto) 0.7 0-1.3 10 ^3/uL Eosinophils # (Auto) 0.1 0-0.8 10 ^3/uL Basophils # (Auto) 0 0-0.2 10 ^3/uL Nucleated Red Blood Cells 0.0 % Sodium Level 142 136-145 mmol/L Potassium Level 4.9 3.5-5.1 mmol/L Chloride Level 107 98-107 mmol/L Carbon Dioxide Level 31 20-31 mmol/L Anion Gap 4 L 5-15 Blood Urea Nitrogen 22 9-23 mg/dL Creatinine 0.92 0.550-1.02 mg/dL Glomerular Filtration Rate Calc 61 >90 mL/min BUN/Creatinine Ratio 23.9 H 10.0-20.0 Serum Glucose 107 H 74-106 mg/dL Lactic Acid Level 1.0 0.4-2.0 mmol/L Calcium Level 10.0 8.7-10.4 mg/dL Total Bilirubin 0.4 0.2-1.0 mg/dL Aspartate Amino Transferase (AST) 19 13-40 U/L Alanine Aminotransferase (ALT) < 9 7-40 U/L Alkaline Phosphatase 141 H 46-116 U/L Ammonia 17 11-32 umol/L B-Type Natriuretic Peptide 127.13 0-100 pg/mL Total Protein 6.6 5.7-8.2 g/dL Albumin 4.2 3.2-4.8 g/dL Plasma/Serum Blood Alcohol 4.0 <10 mg/dL EXAM: CT HEAD WITHOUT CONTRAST INDICATION: aloc TECHNIQUE: CT of the head without intravenous contrast. Radiation Dose Information: CT Dose: CTDI volume is 51.17 mGy. Dose-length product is 1008.64 mGy*cm The dose indicators for CT are the volume Computed Tomography (CT) Dose Index (CTDIvol) and the Dose Length Product (DLP), and are measured in units of mGy and mGy-cm, respectively. These indicators are not patient dose, but values generated from the CT scanner acquisition factors. The report includes radiation exposure data for exposures received during this examination. COMPARISON: CT CERVICAL WITHOUT CONTRAST on DOS: 03/07/23, CT HEAD WITHOUT CONTRAST on DOS: 03/07/23, CT HEAD WITHOUT CONTRAST on DOS: 06/06/22 FINDINGS: There is no evidence of acute intracranial hemorrhage, extra-axial collection, mass effect, midline shift, herniation or hydrocephalus. The ventricles, sulci and cisterns are age appropriate. The belle-white differentiation is intact. Patchy periventricular and subcortical white matter hypoattenuation is nonspecific but may be related to small vessel ischemic disease. The visualized paranasal sinuses and mastoid air cells are clear. The surrounding soft tissues and osseous structures are unremarkable. IMPRESSION: No acute intracranial hemorrhage. No territorial ischemia CHEST RADIOGRAPH Indication: aloc Technique: Single frontal view of the chest was obtained Comparison: XY CHEST PORTABLE on DOS: 03/11/23, XY CHEST PORTABLE on DOS: 03/07/23, XY CHEST PORTABLE on DOS: 06/06/22 Findings/ IMPRESSION: No active cardiopulmonary disease or significant interval change. Elevated left hemidiaphragm. Assessment/Plan Assessment/Plan Assessment/Plan: Acute encephalopathy UA CT head negative Plavix given by ER Straight catheterization given by ER Troponin CT head Screen Pneumonia Blood alcohol EKG Urine culture Blood culture Chest x-ray negative Lactic Troponin negative x2 Echo done on 03/08/2023 EF 55% ECHO Vitamin B12 level Vitamin-D level TSH Chronic Hypertension Continue Medication Chronic hyperlipidemia Continue home medication Chronic dementia Chronic Alzheimer's Continue home medication Follow up with primary History of breast cancer Follow-up with primary Chronic panic disorder Chronic depression Chronic anxiety Continue home medication Follow up with primary FEN/PPX Diet HL PUD ppx - medication, protonix DVT ppx - Lovenox Discussed plan of care with nurse Admit to tele Home medications reconciled Plan discussed with: Patient My Orders Orders - NATALI MCPHERSON Procedure Category Date Status Time Admit ADMIT 03/27/24 Transmitted 06:49 Allergies DAVE 03/27/24 In Process 06:49 Complete Blood Count LAB 03/28/24 Verified 04:00 Comprehensive LAB 03/28/24 Verified Metabolic Panel 04:00 Cardiac DIET 03/27/24 Transmitted Diet-2gna,Lofat,Lochol Breakfast Metoprolol Tartrate PHA 03/27/24 In Process Tablet (Lopressor Ta 10:00 Multiple Vitamin PHA 03/27/24 In Process Tablet (Mvi Tab) 10:00 Pantoprazole Tablet PHA 03/27/24 In Process (Protonix Tablet) 10:00 Atorvastatin (Lipitor) PHA 03/27/24 In Process 22:00 Date of Service: Mar 27, 2024 Billing Provider: NATALI MCPHERSON Common Visit Codes: [id number] INP/OBS CARE (HIGH) NATALI MCPHERSON Mar 27, 2024 09:40
[2024-03-27] MEDS ORDERED: METOPROLOL TARTRATE 50 MG TAB PO SCH (10:00)
[2024-03-27] MEDS: PANTOPRAZOLE 40 MG TAB PO SCH (10:13)
[2024-03-27] MEDS: MULTIPLE VITAMIN TAB PO SCH (10:13)
[2024-03-27] MEDS: ENOXAPARIN SOD 30 MG/0.3 ML SYRINGE SC SCH (10:13)
[2024-03-27 13:36] VITALS: BP 133/80; PULSE 60; RESP 17; TEMP 97.6; O2SAT 96
[2024-03-27 13:50] VITALS: PULSE 60; RESP 17; O2SAT 96
[2024-03-27] MEDS ORDERED: SERT-289 PO (14:41)
[2024-03-27] MEDS ORDERED: METO-289 PO (14:41)
[2024-03-27] MEDS ORDERED: ATOR20TA50 PO (14:41)
[2024-03-27] MEDS ORDERED: PANT40T PO (14:41)
[2024-03-27 16:51] VITALS: BP_SYST 123; BP_SYST 138; BP_DIAS 71; BP_DIAS 78; PULSE 55; PULSE 73; RESP 16; RESP 17; TEMP 97.4; TEMP 97.8; O2SAT 97; O2SAT 99
[2024-03-27 19:30] VITALS: PULSE 82; RESP 19; O2SAT 94
--- NOTE | 2024-03-27 19:49 | DVHSR ---
APPROVED REPORT EXAM: Two-dimensional and M-mode echocardiogram with Doppler and color Doppler. Blood Pressure: 160/72 mmHg INDICATION ALOC RISK FACTORS Height: 66, Weight: 120 DIMENSIONS LVDd4.1 (3.8-5.7cm)LA (2D)3.6 (1.9-4.0cm)Aortic Root3.3 (2.0-3.7cm) LVDs2.7 (2.5-4.0cm)LA (MM) (1.9-4.0cm)Aortic Cusp Exc0.9 (1.5-2.0cm) EF (%) 62.0 (55-70%)Rt. Atrium3.7 (1.9-4.0cm)Asc. Aorta cm IVSd1.0 (0.7-1.1cm)RV (D) (1.8-2.4cm) PWd1.1 (0.7-1.1cm) Mitral Valve MitralMitral Stenosis E wave0.50m/sMV Mean GR.mmHg A wave0.90m/sMV Peak GR.32mmHg E/A ratio0.62D MVAcm2 DECEL [id number] 1/2 [id number] IVRTmsDop MVA2.73cm2 Aortic Valve Aortic ValveAortic Stenosis V11.18m/Tin Mean GR.7mmHg V21.87m/Tin Peak GR.14mmHg LVOT Diameter1.4 (1.8-2.4cm)Doppler AVA0.97cm2 Pulmonic Valve V20.69m/s Tricuspid Valve TR Velocity2.26m/s [id number] Conclusion MILD LVH AND MILD LV DIASTOLIC DYSFUNCTION CALCIFIED AORTIC LEAFLETS BUT NO STENOSIS LV EJECTION FRACTION IS 65% NORMAL MV,TV AND PV NO EFFUSION NORMAL RV FUNCTION
[2024-03-27 21:00] VITALS: BP 154/78; PULSE 55; RESP 17; TEMP 97.7; O2SAT 98
[2024-03-27] MEDS ORDERED: ATORVASTATIN 20 MG TAB PO SCH (22:00)
[2024-03-28 05:00] VITALS: BP 114/70; PULSE 59; RESP 19; TEMP 97.8; O2SAT 96
[2024-03-28 08:16] LABS: Basophils # (auto) 0 10 ^3/uL (0-0.2); Basophils % (auto) 0.4 % (0.0-2.0); Eosinophils # (auto) 0.1 10 ^3/uL (0-0.8); Eosinophils % (auto) 1.1 % (0.0-7.0); Hematocrit 38.1 % (36.0-46.0); Hemoglobin 13.1 g/dL (12.2-16.2); Lymphocytes # (auto) 1.7 10 ^3/uL (0.4-5.4); Lymphocytes % (auto) 33.6 % (10.0-50.0); Mean Corpuscular Hemoglobin 32.2 pg (28.0-32.0); Mean Corpuscular Hgb Conc. 34.5 g/dL (32.0-36.0); Mean Corpuscular Volume 93.4 fL (80.0-100.0); Monocytes # (auto) 0.7 10 ^3/uL (0-1.3); Monocytes % (auto) 13.9 % (0.0-12.0); Neutrophils # (auto) 2.6 10 ^3/uL (1.6-8.6); Nucleated Red Blood Cells % 0.1 %; Platelet Count (auto) 176 10^3/uL (140-450); Red Blood Cells 4.08 10^6/uL (4.0-5.20); Red Cell Distribution Width 14.4 % (11.8-14.3); White Blood Cell 5.1 10^3/uL (4.4-10.8)
[2024-03-28 08:38] LABS: Albumin 3.7 g/dL (3.2-4.8); Alkaline Phosphatase 96 U/L (46-116); Anion Gap 5 (5-15); Aspartate Aminotransferase 17 U/L (13-40); BUN/Creatinine Ratio 18.3 (10.0-20.0); Blood Urea Nitrogen 19 mg/dL (9-23); Calcium 9.6 mg/dL (8.7-10.4); Carbon Dioxide 30 mmol/L (20-31); Chloride 106 mmol/L (98-107); Glucose 94 mg/dL (74-106); Potassium 3.6 mmol/L (3.5-5.1); Sodium 141 mmol/L (136-145)
[2024-03-28 08:39] LABS: Bilirubin, Total 0.4 mg/dL (0.2-1.0)
[2024-03-28 08:40] LABS: Alanine Aminotransferase < 9 U/L (7-40)
[2024-03-28 09:45] VITALS: BP 140/77; PULSE 61; RESP 17; TEMP 97.6; O2SAT 96
[2024-03-28 10:35] LABS: Urine Bacteria None Seen /hpf (None Seen)
[2024-03-28 11:30] LABS: Urine Amorphous Crystal FEW /hpf (None Seen); Urine Blood Negative /uL (Negative); Urine Budding Yeast OCCASIONAL /hpf (None Seen); Urine Clarity Clear (Clear); Urine Color Light-Yellow (Yellow); Urine Protein, UAD Negative (Negative); Urine Specific Gravity 1.021 (1.001-1.035); Urine Squamous Epithelial Cell FEW /hpf (<5); Urine Urobilinogen Normal (Negative); Urine WBC 5 /hpf (0 - 5); Urine pH 6.5 (5.0-9.0)
[2024-03-28] MEDS ORDERED: NITR-87 PO (11:59)
--- NOTE | 2024-03-28 12:03 | DVHDS2 ---
Discharge Summary Date of Admission Mar 27, 2024 at 06:49 Date of Discharge: Mar 28, 2024 Labs/Diagnostic Data: Laboratory Results Test 03/28/24 10:13 03/28/24 07:10 03/27/24 10:11 03/27/24 08:03 Urine Color Light-yellow (Yellow) Urine Clarity Clear (Clear) Urine pH 6.5 (5.0-9.0) Urine Specific [place] 1.021 (1.001-1.035) Urine Protein Negative (Negative) Urine Ketones Negative (Negative) Urine Blood Negative /uL (Negative) Urine Nitrite Negative (Negative) Urine Bilirubin Negative (Negative) Urine Urobilinogen Normal mg/dL (Negative) Urine Leukocyte Esterase 1+ /uL (Negative) Urine RBC None seen /hpf (0 - 4) Urine WBC 5 /hpf (0 - 5) Urine Squamous Epithelial Cells Few /hpf (<5) Urine Calcium Oxalate Crystals Few (None Seen) Urine Amorphous Crystals Few /hpf (None Seen) Urine Bacteria None seen /hpf (None Seen) Urine Yeast (Budding) Occasional /hpf (None Urine Glucose Normal mg/dL (Normal) White Blood Count 5.1 10^3/uL (4.4-10.8) Red Blood Count 4.08 10^6/uL (4.0-5.20) Hemoglobin 13.1 g/dL (12.2-16.2) Hematocrit 38.1 % (36.0-46.0) Mean Corpuscular Volume 93.4 fL (80.0-100.0) Mean Corpuscular Hemoglobin 32.2 pg (28.0-32.0) Mean Corpuscular Hemoglobin Concent 34.5 g/dL (32.0-36.0) Red Cell Distribution Width 14.4 % (11.8-14.3) Platelet Count 176 10^3/uL (140-450) Mean Platelet Volume 9.0 fL (6.9-10.8) Neutrophils (%) (Auto) 51.0 % (37.0-80.0) Lymphocytes (%) (Auto) 33.6 % (10.0-50.0) Monocytes (%) (Auto) 13.9 % (0.0-12.0) Eosinophils (%) (Auto) 1.1 % (0.0-7.0) Basophils (%) (Auto) 0.4 % (0.0-2.0) Neutrophils # (Auto) 2.6 10 ^3/uL (1.6-8.6) Lymphocytes # (Auto) 1.7 10 ^3/uL (0.4-5.4) Monocytes # (Auto) 0.7 10 ^3/uL (0-1.3) Eosinophils # (Auto) 0.1 10 ^3/uL (0-0.8) Basophils # (Auto) 0 10 ^3/uL (0-0.2) Nucleated Red Blood Cells 0.1 % Sodium Level 141 mmol/L (136-145) Potassium Level 3.6 mmol/L (3.5-5.1) Chloride Level 106 mmol/L (98-107) Carbon Dioxide Level 30 mmol/L (20-31) Anion Gap 5 (5-15) Blood Urea Nitrogen 19 mg/dL (9-23) Creatinine 1.04 mg/dL (0.550-1.02) Glomerular Filtration Rate Calc 52 mL/min (>90) BUN/Creatinine Ratio 18.3 (10.0-20.0) Serum Glucose 94 mg/dL (74-106) Calcium Level 9.6 mg/dL (8.7-10.4) Total Bilirubin 0.4 mg/dL (0.2-1.0) Aspartate Amino Transferase (AST) 17 U/L (13-40) Alanine Aminotransferase (ALT) < 9 U/L (7-40) Alkaline Phosphatase 96 U/L (46-116) Total Protein 6.0 g/dL (5.7-8.2) Albumin 3.7 g/dL (3.2-4.8) Vitamin B12 Level 633 pg/mL (211-911) Thyroid Stimulating Hormone (TSH) 2.69 uIU/mL (0.55-4.78) Urine Opiates Screen Neg (NEGATIVE) Urine Fentanyl Screen Neg (NEGATIVE) Urine Barbiturates Screen Neg (NEGATIVE) Urine Phencyclidine Screen Neg (NEGATIVE) Urine Amphetamines Screen Neg (NEGATIVE) Urine Benzodiazepines Screen Neg (NEGATIVE) Urine Cocaine Screen Neg (NEGATIVE) Urine Cannabinoids Screen Neg (NEGATIVE) Test 03/26/24 23:50 03/26/24 22:28 Troponin I High Sensitivity 3 ng/L (</=34) Lactic Acid Level 1.0 mmol/L (0.4-2.0) Ammonia 17 umol/L (11-32) B-Type Natriuretic Peptide 127.13 pg/mL (0-100) Plasma/Serum Blood Alcohol 4.0 mg/dL (<10) Other Laboratory Tests 03/28/24 07:10 Brief Hx & Hospital Course: Final diagnoses: Alzheimer's dementia Metabolic encephalopathy due to UTI UTI HTN Dyslipidemia 70 year old female was admitted for ALOC CT head was neg CXR no pneumonia UA: Mild UTI She is back to her baseline mental status DC home on Macrobid x7 days Condition at Discharge: Stable Final Diagnosis/Problems List Alzheimer's dementia Metabolic encephalopathy due to UTI UTI HTN Dyslipidemia Discharge Disposition: Home SNF Discharge Will this Physician continue t: No Discharge Instruct/Medications Diet: Regular Activity: No Restrictions, As Tolerated Follow Up/Referral: PCP Medications: Same home meds Discharge Statement: "Patient was advised to return to the ER or call 911 if any headaches, dizziness, shortness of breath, chest pain, abdominal pain, bleeding, fevers, or worsening of medical condition. Patient was counseled about treatment plan, medications, possible side effects, patientverbalized understanding. All questions were answered to the best of my ability. This discharge took greater then 30 minutes in planning, reviewing documentation, counseling the patient, and discussing with other team members." ASSESSMENT ASSESSMENT Assessment Alzheimer's dementia Metabolic encephalopathy HTN Dyslipidemia Date of Service: Mar 28, 2024 Billing Provider: TIGRE COTTER MD Common Visit Codes: NOT BILLABLE TIGRE COTTER MD Mar 28, 2024 12:02
[2024-03-28 13:00] VITALS: BP 149/69; PULSE 59; RESP 18; TEMP 97.6; O2SAT 96
[2024-03-30 17:06] LABS: Vitamin D 25-Hydroxy 45 ng/mL (.); Vitamin D-2 25-Hydroxy <1.0 ng/mL (.); Vitamin D-3 25-Hydroxy 45 ng/mL (.)
== END 2024-03-28 14:30 | disposition home or self-care (01) | DRG 689 ==
LOC: EDBD 21:24 → ER 21:24 → OVERFLOW 03-27 06:49 → WEST WING 03-27 13:33
DX: N39.0 Urinary tract infection, site not specified (principal); G93.41 Metabolic encephalopathy; F02.83 Dementia in other diseases classified elsewhere, unspecified severity, with mood disturbance; F02.84 Dementia in other diseases classified elsewhere, unspecified severity, with anxiety; G30.9 Alzheimer's disease, unspecified; I10 Essential (primary) hypertension; E78.5 Hyperlipidemia, unspecified; F32.A Depression, unspecified; F41.0 Panic disorder [episodic paroxysmal anxiety]; Z88.6 Allergy status to analgesic agent; Z91.048 Other nonmedicinal substance allergy status; Z90.710 Acquired absence of both cervix and uterus; Z85.3 Personal history of malignant neoplasm of breast; Z79.899 Other long term (current) drug therapy
CPT/HCPCS: 36415; 70450; 71045; 80053; 80307; 80320; 81001; 82140; 82306; 82607; 83605; 83880; 84443; 84484; 85025; 87040; 87086; 93306; G0378